=== PATIENT | male | born 1945 | race Asian ===

== ENCOUNTER → 2020-02-10 | Day surgery (SDC) | payer OTHER ==
[2020-02-10] VITALS (12 sets, daily range): BP systolic 131–153; BP diastolic 61–77
[~2020-02-10] VITALS: Ht 165.1 cm; Wt 70.3 kg
[~2020-02-10] MED LIST: ASPIRIN81 MG ORAL; Atropine Sulfate 0.4mg/ml inj IVP PRN; Bacitracin 50000 Units Vial ONE; Bupivacaine 0.5% Inj 30 ml vial INJ ONE; DiphenhydrAMINE 50mg/ml Inj IVP PRN; EPINEPHrine 1mg/1ml Amp ONE; HYDROcodone/Acetamin 5/325 tab ORAL PRN; HYDROcodone/Acetamin 7.5/325 tab ORAL PRN; Hydromorphone 0.5mg/0.5ml inj IVP PRN; Ketorolac 30mg Inj IV PRN; LORazepam Inj 2mg/ml 1ml IV PRN; LOSARTAN POTASS25 MG ORAL; LR 1000ml 1,000 ML IVLG SCH; LR 1000ml ONE; Labetalol 5mg/ml 20ml vial IV PRN; Lidocaine 1% MPF 10mg/ml 5ml ONE; Meperidine 25mg/1ml Inj (FOR RIGORS ONLY) IV PRN; Metoclopramide 10mg/2ml Inj IVP PRN; Midazolam 2mg/2ml Inj IVP PRN; NS Irrig 4000ml IRRIG ONE; NeoSporin Gu Irrig 1ml Amp IRRIG ONE; Ropivacaine 5mg/ml Vial 20ml INJ ONE; SIMVASTATIN10 MG ORAL; Sodium Chloride 10ml vial INJ ONE; Sterile Water Irrig 1000ml IRRIG ONE; fentaNYL 100 mcg/2 mL IV PRN; oxyCODONE HCL/Acetaminophen 5/325mg ORAL PRN
--- NOTE | 2020-02-10 09:16 | Anethesia Preoperative Eval ---
Anesthesia Pre-op PMH/ROS General Date of Evaluation: Feb 10, 2020 Time of Evaluation: 09:54 Anesthesiologist: Guanaco ASA Score: ASA 3 Mallampati Score Class I : Soft palate, uvula, fauces, pillars visible Class II: Soft palate, uvula, fauces visible Class III: Soft palate, base of uvula visible Class IV: Only hard plate visible Mallampati Classification: Class II Surgeon: Jethro Diagnosis: R Shoulder Pain Surgical Procedure: R Shoulder Arthroscopy, RCR Anesthesia History: none Family History: no anesthesia problems Allergies: Coded Allergies: No Known Allergies (Unverified , 02/07/20) Medications: see eMAR Patient NPO?: Yes Past Medical History Cardiovascular: Reports: HTN, other - HL Gastrointestinal/Genitourinary: Reports: GERD Musculoskeletal/Integumentary: Reports: other - Back Pain Anesthesia Pre-op Phys. Exam Physician Exam Last Vital Signs Date Time Temp Pulse Resp B/P (MAP) Pulse Ox O2 Delivery O2 Flow Rate FiO2 02/10/20 08:40 96.4 61 18 152/77 98 Room Air Constitutional: NAD Neurologic: CN 2-12 intact Cardiovascular: RRR Respiratory: CTA Gastrointestinal: S/NT/ND Airway Exam Mallampati Score: Class II MO: full ROM: limited Teeth: missing, intact Anesthesia Pre-op A/P Risk Assessment & Plan Assessment: ASA 3 Plan: GA, Supraclavicular Block Status Change Before Surgery: No Pre-Antibiotics Dru Gram Ancef IV Given Within 1 Hr of Incision: Yes Time Given: 10:16 Jamison Blanc MD Feb 10, 2020 09:16
--- NOTE | 2020-02-10 09:17 | Immediate Post-Op Evaluation ---
Immediate Post-Op Evalulation Immediate Post-Op Evalulation Procedure: R Shoulder Arthroscopy, RCR Date of Evaluation: Feb 10, 2020 Time of Evaluation: 12:45 IV Fluids: 900 LR Blood Products: 0 Estimated Blood Loss: 10 Urinary Output: 0 Blood Pressure Systolic: 153 Blood Pressure Diastolic: 72 Pulse Rate: 80 Respiratory Rate: 16 O2 Sat by Pulse Oximetry: 99 Temperature (Fahrenheit): 97 Pain Score (1-10): 2 Nausea: No Vomiting: No Complications 0 Patient Status: awake, reacts, patent, extubated, none Hydration Status: adequate Dru Gram Ancef IV Given Within 1 Hr of Incision: Yes Time Given: 10:16 Jamison Blanc MD Feb 10, 2020 09:17
--- NOTE | 2020-02-10 09:18 | 48 Hour Post Anesthesia Eval ---
Post Anesthesia Evaluation Procedure: R Shoulder Arthroscopy, RCR Date of Evaluation: Feb 10, 2020 Time of Evaluation: 15:12 Blood Pressure Systolic: 147 0: 73 Pulse Rate: 60 Respiratory Rate: 18 Temperature (Fahrenheit): 97.6 O2 Sat by Pulse Oximetry: 98 Airway: patent Nausea: No Vomiting: No Pain Intensity: 1 Hydration Status: adequate Cardiopulmonary Status: Stable Mental Status/LOC: patient returned to baseline Follow-up Care/Observations: 0 Post-Anesthesia Complications: 0 Follow-up care needed: ready to discharge Jamison Blanc MD Feb 10, 2020 09:18
--- NOTE | 2020-02-10 09:31 | Pre-Procedure Note/Attestation ---
Pre-Procedure Note/Attestation Complete Prior to Procedure Planned Procedure: right Procedure Narrative: right shoulder arthroscopy, possible open rotator cuff repair, possible AC resection Indications for Procedure Pre-Operative Diagnosis: right rotator cuff tear and ac arthrosis Attestation I attest that I discussed the nature of the procedure; its benefits; risks and complications; and alternatives (and the risks and benefits of such alternatives), prior to the procedure, with the patient (or the patient's legal manufacturer's representative). I attest that, if there was a reasonable possibility of needing a blood transfusion, the patient (or the patient's legal manufacturer's representative) was given the [facility] standardized written summary, pursuant to the [employer] Blood Safety Act ([place] Health and Safety Code # 1645, as amended). I attest that I re-evaluated the patient just prior to the surgery and that there has been no change in the patient's H&P, except as documented below: Ruperto Morelos MD Feb 10, 2020 09:31
--- NOTE | 2020-02-10 12:16 | Brief Operative Note ---
Immediate Post Operative Note Operative Note Pre-op Diagnosis: right rotator cuff tear and ac arthrosis Procedure: eua, scope rotator cuff repair Post-op Diagnosis: same Post-op Diagnosis: same as pre-op Findings: consistent w/pre-op dx studies Surgeon: grazyna Grease Maker Head: sam Anesthesia: general Specimen: none Complications: none Condition: stable Fluids: per anesthesia Estimated Blood Loss: minimal Drains: none Implant(s) used?: Yes Ruperto Moerlos MD Feb 10, 2020 12:16
--- NOTE | 2020-02-11 13:45 | Operative Note - Dictated ---
DATE OF OPERATION: 02/10/2020 PREOPERATIVE DIAGNOSIS: Right shoulder rotator cuff tear. POSTOPERATIVE DIAGNOSIS: Right shoulder rotator cuff tear. SURGEON: Ruperto Morelos MD. AIRPLANE FUELER: Reza Crocker MD. ANESTHESIA: General LMA beach-chair position. COMPLICATIONS: None. ESTIMATED BLOOD LOSS: 15 mL. SPECIMENS: None. 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 He has failed conservative treatment including therapy and injections and is now brought in for elective rotator cuff repair. DESCRIPTION OF PROCEDURE IN DETAIL: The patient was brought into the operating room and identified by his name. After anesthesia was induced, he was placed into the beach-chair position with all pressure points padded. A time-out was performed. The shoulder was taken through a full range of motion. There were minimal adhesions broken up. The shoulder was prepped and draped in usual sterile fashion. After an additional timeout, a posterior portal incision was made and the shoulder joint entered with the arthroscope atraumatically. The articular surfaces were normal. There was minor fraying of the labrum. The inferior pouch was normal. The biceps tendon was normal. There was an obvious rotator cuff tear with approximately 2 cm of retraction. The arthroscope was brought into the subacromial space where there was extensive adhesion formation. Once the subacromial space was adequately decompressed with complete synovectomy and bursectomy, the acromioplasty was performed using a grinder hardboard. This allowed excellent visualization of the rotator cuff. A total of four arthroscopic portals were utilized to repair the rotator cuff. The [employer] system was utilized. The rotator cuff was mobilized by breaking up adhesions underneath to allow a repair without tension. There was a retype pattern to the rotator cuff tear. It was felt that a single row single anchor repair was adequate with this tear in this individual. The anchor was secured into the bone. There were four tails. The scorpion type device was used to grasp the rotator cuff with the first pair of sutures. Unfortunately, the sutures pulled out of the anchor, although the anchor was secured in the bone. These were held aside. The second suture strings were successfully brought through the rotator cuff and remained in the anchor. These were tied without difficulty. A second suture anchor hole was placed more laterally. The first two strings as well as the second two strings were then placed through the anchor. This was advanced into the hole more laterally so that two sutures secured the repair through two anchors. The shoulder was taken through a range of motion. The cuff repair was not under tension and appeared excellent. A final check was made for hemostasis. No bleeding was identified. No other pathology was identified. The AC joint was again inspected. There was no significant impingement from the minor osteophytes. Excessive fluid was removed. Lidocaine was instilled into the portals and into the subacromial space to aid in postoperative pain control. 4-0 Vicryl sutures were placed into the portals. A sterile dressing was applied. He was placed into a shoulder immobilizer. He was awakened in the operating room in satisfactory condition. Ruperto Morelos M.D. DR: Abbie JOB#: [id number] CC: Ruperto Morelos M.D.; [address] [place] [id number]; [place] [address]
== END | disposition home or self-care (01) ==
LOC: SUR 07:54
DX: M75.101 Unspecified rotator cuff tear or rupture of right shoulder, not specified as traumatic (principal); I10 Essential (primary) hypertension; K21.9 Gastro-esophageal reflux disease without esophagitis; E78.00 Pure hypercholesterolemia, unspecified; Z79.82 Long term (current) use of aspirin; Z79.899 Other long term (current) drug therapy
CPT/HCPCS: 29821; 29826; 29827; 94003; C1713; J0171; J0690; J1100; J2250; J2405; J2704; J2795; J3490; J7120; U0002; 94150